=== PATIENT | female | born 1985 | race African-American/Black ===

== ENCOUNTER 2016-04-30 02:42 | Inpatient (IN) | payer OTHER ==
[2016-04-30] MEDS ORDERED: OXYTOCIN 10 UNIT/ML VIAL ONE (03:06)
[2016-04-30] MEDS ORDERED: OXYTOCIN/NORMAL SALINE 20 UNIT/1,000 ML RTUINJ ONE (03:06)
[2016-04-30] MEDS ORDERED: MISOPROSTOL 0.2 MG TABLET ONE (03:06)
[2016-04-30] MEDS ORDERED: LIDOCAINE 1% INJ-PF (10 MG/ML) 30 ML SDV ONE (03:06)
[2016-04-30] MEDS ORDERED: PENICILLIN G-K 5 MILLION UNIT VIAL ONE (03:17)
[2016-04-30 03:24] LABS: ABSOLUTE EOSINOPHILS # (AUTO) 0.1 10^3/uL (0.0-0.6); ABSOLUTE LYMPHOCYTES (AUTO) 2.6 10^3/uL (0.5-4.7); ABSOLUTE MONOCYTES (AUTO) 0.7 10^3/uL (0.1-1.4); ABSOLUTE NEUT (AUTO) 5.7 10^3/uL (1.7-8.2); BASOPHILS % (AUTO) 0.4 % (0-2); EOSINOPHILS % (AUTO) 0.7 % (0-6); HEMATOCRIT 32.3 % (36.0-47.0); HEMOGLOBIN 10.6 g/dL (12.0-15.5); HGB HCT DIFFERENCE -0.5; LYMPHOCYTES % (AUTO) 28.8 % (13-45); MEAN CORPUSCULAR HEMOGLOBIN 28.3 pg (27.0-33.4); MEAN CORPUSCULAR HGB CONC 32.8 g/dL (32.0-36.0); MEAN CORPUSCULAR VOLUME 86 fl (80-97); MONOCYTES % (AUTO) 7.7 % (3-13); RED BLOOD COUNT 3.74 10^6/uL (3.72-5.28); RED CELL DISTRIBUTION WIDTH 17.5 % (11.5-14.0); SEGMENTED NEUTROPHILS % (AUTO) 62.4 % (42-78); WHITE BLOOD COUNT 9.1 10^3/uL (4.0-10.5)
[2016-04-30 03:26] LABS: APPEARANCE,URINE CLEAR; BILIRUBIN,URINE NEGATIVE (NEGATIVE); GLUCOSE, URINE NEGATIVE (NEGATIVE); KETONES,URINE NEGATIVE (NEGATIVE); LEUKOCYTE ESTERASE,URINE MODERATE (NEGATIVE); NITRITE,URINE NEGATIVE (NEGATIVE); PROTEIN,URINE NEGATIVE (NEGATIVE); URINE SPECIFIC GRAVITY 1.003; UROBILINOGEN,URINE NEGATIVE mg/dL (<2.0)
[2016-04-30 03:39] LABS: URINE BARBITURATES SCREEN NEGATIVE; URINE METHADONE SCREEN NEGATIVE; URINE OPIATES LOW NEGATIVE; URINE PHENCYCLIDINE SCREEN NEGATIVE
--- NOTE | 2016-04-30 05:01 | Admission Physical ---
Datetime Report Generated by CPN: 04/30/2016 05:01 CURRENT ADMISSION Hx Assessment: The History has been Reviewed and is Current Chief Complaint: Uterine Contractions Indication for Induction: Not Applicable Admit Plan: Admit to Unit; Initiate Labor Protocol ALLERGIES Medication Allergies: No Medication Allergies: No Known Allergies (04/30/2016) Medication Allergies: N/A Latex: No Latex Allergies Food Allergies: N/A Environmental Allergies: N/A OBSTETRICAL HISTORY EDC: 05/05/2016 00:00 : 2 Para: 1 Gestational Diabetes: No Rh Sensitization: No Incompetent Cervix: No DENI: No Infertility: No ART Treatment: No Uterine Anomaly: No IUGR: No Hx Previous C/S: No Macrosomia: No Hx Loss/Stillborn: No PIH: No Hx : No Placenta Previa/Abruption: No Depression/PP Depression: No PTL/PROM: No Post Hemorrhage: No Current Procedures: Ultrasound Obstetrical History Comments: G1- June 2013, girl, G2-current SEE RECORDS Alcohol: No Marijuana : No Cocaine: No Other Illicit Drugs: No Cigarettes: Never Smoker. [id number] MEDICAL HISTORY Diabetes: No Blood Transfusion: No Pulmonary Disease (Asthma, TB): No Breast Disease: No Hypertension: No Radio Producer Surgery: No Heart Disease: No Hosp/Surgery: No Autoimmune Disorder: No Anesthetic Complications: No Kidney Disease: Yes Abnormal Pap Smear: Yes Neuro/Epilepsy: No Psychiatric Disorders: No Other Medical Diseases: No Hepatitis/Liver Disease: No Significant Family History: No Varicosities/Phlebitis: No Trauma/Violence : No Thyroid Dysfunction: No Medical History Comments: UTI's and abnormal paps INFECTIOUS HISTORY Gonorrhea: No Genital Herpes: No Chlamydia: No Tuberculosis: No Syphilis: No Hepatitis: No HIV/AIDS Exposure: No Rash or Viral Illness: No HPV: No PHYSICAL EXAM General: Normal HEENT: Deferred Neurologic: Deferred Thyroid: Deferred Heart: Normal Lungs: Normal Breast: Deferred Back: Deferred Abdomen: Normal Genitourinary Exam: Normal Extremities: Normal DTRs: Normal Pelvic Type: Adequate Vital Signs: Reviewed; Within Normal Limits VAGINAL EXAM Contraction Comments: q2 MEMBRANES Membranes: Intact FETUS A Admit Comment: Term labor. gbs positive for pcn. Presented completely dilated- precipitous labor, single push delivery after arom PLANS FOR LABOR AND DELIVERY Labor and Delivery: None Pain Management: None Feeding Preference: Breast Benefit of Breast Feed Discussed: Yes Circumcision: N/A INFORMED CONSENT Signature: with User ID: [email or web address]
[2016-04-30] MEDS ORDERED: MEASLES,MUMPS&RUBELLA VACC/PF 0.5 ML VIAL SUBCUT PRN (05:06)
[2016-04-30] MEDS ORDERED: DIBUCAINE 1% OINTMENT 28 GM TP PRN (05:06)
[2016-04-30] MEDS ORDERED: DIPH/PERTUSS(ACELL)/TETANUS VAC/PF 0.5 ML SYR (>=10YO) IM PRN (05:06)
[2016-04-30] MEDS ORDERED: BENZOCAINE/MENTHOL AEROSOL SPRAY 56 ML TOP PRN (05:06)
[2016-04-30] MEDS ORDERED: OXYTOCIN/NORMAL SALINE 1,000 ML IV PRN (05:06)
[2016-04-30] MEDS ORDERED: ZOLPIDEM TARTRATE 5 MG TABLET PO PRN (05:06)
[2016-04-30] MEDS ORDERED: ACETAMINOPHEN WITH CODEINE #3 TABLET PO PRN ×2 (05:06)
--- NOTE | 2016-04-30 05:10 | Delivery Summary ---
Del Sum A-C Datetime Report Generated by CPN: 04/30/2016 05:09 ADMISSION DATA Chief Complaint: Uterine Contractions Indication for Induction: Not Applicable Admission Impression: Term, Intrauterine ; Active Labor Admit Provider Comments: Term labor. gbs positive for pcn. Presented completely dilated- precipitous labor, single push delivery after arom DELIVERY PERSONNEL Delivery Doctor:: Liv Hinds MD Labor and Delivery Nurse:: Estella Chirinos RN Nursery Nurse:: Mickie Bro RN Extension Service Supervisor/ELECTRONIC TECH: Jannet Cheung, ST MATERNAL INFORMATION Delivery Anesthesia: None Medications After Delivery: Pitocin Drip 20 Units/1000ml NSS Estimated Blood Loss (ml): 200 Maternal Complications: Precipitous Labor (<3hrs) Provider Comments: single push after arom clear fluid. tight nuchal unable to reduce so clamped on perineum. live female ap 9/9. spontaneous intact placenta 3vc. no complications LABOR SUMMARY EDC: 05/05/2016 00:00 No. Babies in Womb: 1 Attempted: No Labor Anesthesia: None LABOR INFORMATION Reason for Induction: Not Applicable Onset of Labor: 04/30/2016 01:30 Complete Dilatation: 04/30/2016 03:05 Group B Beta Strep: Positive Antibiotics # of Doses: 1 Antibiotics Time of Last Dose: 0318 Name of Antibiotic Given: Penicillin Steroids Given: None Reason Steroids Not Administered: Not Applicable MEMBRANES Membranes Rupture Method: Artificial Rupture of Membranes: 04/30/2016 03:20 Length of Rupture (hr): 0.07 Amniotic Fluid Color: Clear Amniotic Fluid Amount: Moderate Amniotic Fluid Odor: Normal STAGES OF LABOR Stage 1 hr: 1 Stage 1 min: 35 Stage 2 hr: 0 Stage 2 min: 19 Stage 3 hr: 0 Stage 3 min: 2 Total Time in Labor hr: 1 Total Time in Labor min: 56 VAGINAL DELIVERY Episiotomy: None Laceration Extension: N/A Laceration Type: None Laceration Repair: Not Applicable Sponge Count Correct: N/A CSECTION DELIVERY Primary Indication: N/A Secondary Indication: N/A CSection Incidence: N/A Labor: N/A Elective: N/A CSection Incision: N/A BABY A INFORMATION Delivery Date/Time: 04/30/2016 03:24 Method of Delivery: Vaginal Born in Route : No : N/A Forceps: N/A Vacuum Extraction: N/A Shoulder Dystocia : No PRESENTATION/POSITION BABY A Presentation: Cephalic Cephalic Presentation: Vertex Vertex Position: Left Occipital Anterior Breech Presentation: N/A PLACENTA INFORMATION BABY A Placenta Delivery Time : 04/30/2016 03:26 Placenta Method of Delivery: Spontaneous Placenta Status: Delivered SCORES BABY A Heart Rate 1 min: >100 bpm Resp Effort 1 min: Good Cry Reflex Irritability 1 min: Cough or Sneeze or Pulls Away Muscle Tone 1 min: Active Motion Color 1 min: Body Idalia, Extremities Blue Resuscitation Effort 1 min: Tactile Stimulation SCORE 1 MIN: 9 Heart Rate 5 min: >100 bpm Resp Effort 5 min: Good Cry Reflex Irritability 5 min: Cough or Sneeze or Pulls Away Muscle Tone 5 min: Active Motion Color 5 min: Body Idalia, Extremities Blue Resuscitation Effort 5 min: Tactile Stimulation SCORE 5 MIN: 9 INFANT INFORMATION BABY A Gestational Age at Delivery: 39.2 Gestational Status: Full Term- 39- 40.6 Weeks Outcome : Liveborn Infant Condition : Stable Sex: Female IDENTIFICATION BABY A Verification Date/Time: 04/30/2016 03:38 ID Band Number: [id number] Mother's Name Verified: Yes RN Verifying Infant: S. Lattibeaudeir, RN _ K. Amari, RN WEIGHT/LENGTH BABY A Infant Birthweight (gm): 3732 Weight (lb): 8 Weight (oz): 4 Length (in): 19.00 Length (cm): 48.26 CORD INFORMATION BABY A No. Cord Vessels: 3 Nuchal Cord : Around Neck x1, Tight Cord Blood Taken: Yes-For Eval (Mom's Blood Type - or O+) ASSESSMENT BABY A Complications: None Physical Findings at Delivery: Within Normal Limits Respirations: Appears Normal Skin to Skin: Yes Skin to Skin Time (min): 90 Infant Care By: DOMONIQUE Peña Transferred To: Remains with Mother BABY B INFORMATION : N/A SIGNATURES Signature: with User ID: [email or web address]
[2016-04-30] MEDS: IBUPROFEN 800 MG TABLET PO SCH ×3 (05:32→22:15)
--- NOTE | 2016-04-30 07:01 | L&D Flow Sheet ---
LD Flowsheet Datetime Report Generated by CPN: 04/30/2016 07:00 Datetime: 04/30/2016 04:47 NBP Sys/Kelsy/Mean (mmHg): 130 (QS system process) : 79 (QS system process) : 97 (QS system process) Pulse: 61 (QS system process) Datetime: 04/30/2016 04:31 Vital Signs Stage of : Recovery (Estella ChirinosDOMONIQUE) NBP Sys/Kelsy/Mean (mmHg): 125 (QS system process) : 85 (QS system process) : 101 (QS system process) Pulse: 54 (QS system process) Temperature (F): 98.0 (Estella DOMONIQUE Chirinos) Temperature (C): 36.7 (QS system process) Temperature Route: Axillary (Estella Chirinos DOMONIQUE) Datetime: 04/30/2016 04:17 Vital Signs Stage of : Recovery (Estella Chirinos RN) Datetime: 04/30/2016 04:16 NBP Sys/Kelsy/Mean (mmHg): 118 (QS system process) : 74 (QS system process) : 91 (QS system process) Pulse: 67 (QS system process) Datetime: 04/30/2016 04:01 Vital Signs Stage of : Recovery (Estella Field, RN) NBP Sys/Kelsy/Mean (mmHg): 119 (QS system process) : 69 (QS system process) : 88 (QS system process) Pulse: 67 (QS system process) Datetime: 04/30/2016 03:45 Vital Signs Stage of : Recovery (Estella Chirinos, RN) Datetime: 04/30/2016 03:35 Membranes Ruptured Date/Time: 04/30/2016 03:20 (Estella Chirinos, RN) Amniotic Fluid Odor: Normal (Estellaclarence Chirinos, RN) Datetime: 04/30/2016 03:30 Vital Signs Stage of : Recovery (Estella Field, RN) Datetime: 04/30/2016 03:23 Stage 2 Pushing: Coached on Pushing; Urge to Push (Estella Field, RN) Pushing Position: Pushing with Contractions (Estella Field, RN) Datetime: 04/30/2016 03:20 Uterine Activity Monitor Mode: External; Palpation (Estella Field, RN) Frequency (min): 2.5-3 (Estella Field, RN) Quality: Moderate to Strong (Estella Field, RN) Duration (sec): 70-100 (Estella Field, RN) Resting Tone (Palpate): Relaxed (Estella Field, RN) Assessment A Monitor Mode: External US ([facility], ) FHR Baseline Rate : 130 ([facility]) Variability: Moderate 6-25 bpm ([facility], ) Accelerations: 15X15 ([facility], ) Decelerations: None ([facility], ) Membranes Rupture Method: Artificial ([facility], ) Amniotic Fluid Color: Clear ([facility], ) Amniotic Fluid Amount: Moderate ([facility]) Datetime: 04/30/2016 03:18 Vital Signs Stage of : Labor ([facility], RN) Medications Antibiotics: Penicillin IV (Units) @ [id number] (Estella Field, RN) Patient Care Procedures: Consents Signed; Labs Drawn (Estella Field, RN) Datetime: 04/30/2016 03:05 Frequency (min): q2-3 minutes (Estella Field, RN) Pain Pain Scale: 4 (Estella Chirinos, RN) Pain Presence: Intermittent (Estella Chirinos, RN) Pain Type: Cramping (Estella Chirinos, RN) Pain Location: Abdomen; Back (Estella Chirinos, RN) Pain Goal: 0 (Estella Chirinos, RN) Pain Relief Measures: Comfort Measures (Estella , RN) Pain Coping: Talking Through Contractions; Breathing Through Contractions (Estella , RN) Vaginal Exam Dilatation (cm): 10.0 (Estella , RN) Effacement (%): 100 (Estella , RN) Station: 0 ([facility], RN) Exam by: DOMONIQUE Gomez ([facility], RN) Vaginal Bleeding: None ([facility], ) Maternal Assessment Level of Consciousness: Fully Conscious (Estella , RN) DTR's/Clonus: DTRs 2+; No Clonus (Estella , RN) Headache: Denies (Estella , RN) Breath Sounds, Left: Clear and Equal (Estella Chirinos RN) Breath Sounds, Right: Clear and Equal (Estella Chirinos RN) Nausea/Vomiting: Denies (Estella Chirinos RN) RUQ Epigastric Pain: Denies (Estella Chirinos RN) Teaching Instructional Method: Verbal; Patient Instructed; Family/Support Person Instructed; Verbalized Understanding (Estella Chirinos RN) Plan of Care: Plan of Care Discussed; Vaginal Delivery (Estella Chirinos RN) Unit Routine: [place] to Room; Call Vivar; Bed; Visiting Policy; Waiting Areas; Infant Security; Phone/Cell Phone Use; Photography; Unit Personnel; Consents Signed; Handwashing; Flu/Illness Precautions; Monitoring; IV Pumps; Safety/Fall Risk Prevention; Bathroom Privileges (Estella Chirinos RN) Datetime: 04/30/2016 03:04 NBP Sys/Kelsy/Mean (mmHg): 126 (QS system process) : 63 (QS system process) : 81 (QS system process) Pulse: 100 (QS system process)
[2016-04-30] MEDS: FERROUS SULFATE 325 MG TABLET PO SCH ×2 (09:28→17:43)
[2016-04-30] MEDS: SENNOSIDES/DOCUSATE 8.6-50 MG 1 EACH TABLET PO SCH (09:29)
[2016-04-30] MEDS: DOCUSATE SODIUM 100 MG CAPSULE PO SCH ×2 (09:29→17:43)
[2016-04-30] MEDS: PRENATAL VITAMIN W-O CA NO5/FE FUMARATE/FA CAPSULE PO SCH (09:29)
--- NOTE | 2016-04-30 18:00 | L&D Current Admission ---
Current Admit Datetime Report Generated by CPN: 04/30/2016 18:00 ADMISSION INFORMATION Current Admit Date/Time: 04/30/2016 02:55 (04/30/2016 03:40:Estella Chirinos RN) Reason for Admission: Onset of Labor (04/30/2016 03:40:Estella Chirinos RN) Chief Complaint: Contractions (04/30/2016 03:05:Estella Chirinos RN) EGA per Dates: 39.2 (04/30/2016 03:40:QS system process) Method of Arrival: Wheelchair (04/30/2016 03:40:Estella Chirinos RN) Reason for Induction: Not Applicable (04/30/2016 03:40:Estella Chirinos RN) BELONGINGS/ADVANCED DIRECTIVES Valuables/Personal Effects: Purse/Wallet; Cell Phone (04/30/2016 03:40:Estella Chirinos RN) Disposition of Belongings: Kept with Patient (04/30/2016 03:40:Etsella Chirinos RN) Advance Direct for Healthcare: Yes, Instructed to Bring In (04/30/2016 03:40:Estella Chirinos RN) Durable Power of Sap Portal Developer: Yes (04/30/2016 03:40:Estella Chirinos RN) Living Will: Yes (04/30/2016 03:40:Estella Chirinos RN) Organ Donor: No (04/30/2016 03:40:Estella Chirinos RN) Pt Rights Information Given: Yes (04/30/2016 03:40:Estella Chirinos RN) Pt Understands Pt Rights: Yes (04/30/2016 03:40:Estella Chirinos RN) LEARNING ASSESSMENT Knowledge Level: Understands L_D Process; Understands Care Activities; Had Pre-Hospital Education; Understands Diagnosis (04/30/2016 03:40:Estella Chirinos RN) Barriers to Learning: None (04/30/2016 03:40:Estella Chirinos RN) Learning Readiness: Motivated (04/30/2016 03:40:Estella Chirinos RN) Learns Best By: Reading; Videos (04/30/2016 03:40:Estella Chirinos RN) Learning Needs: Labor and Delivery Process; Pain Management; Symptoms to Report; Treatment Plan (04/30/2016 03:40:Estella Chirinos RN) DOMESTIC VIOLANCE SCREENING Dom Viol Threatened/Hurt: No (04/30/2016 03:40:Estella Chirinos RN) Hx of Abuse/Neglect past 2yrs: No (04/30/2016 03:40:Estella Chirinos RN) Feel Unsafe Going Home: No (04/30/2016 03:40:Estella Chirinos RN) Addt'l Observ Indicating Abuse: No (04/30/2016 03:40:Estella Chirinos RN) Reason Unable to Complete Screen: N/A, Screen Completed (04/30/2016 03:40:Estella Chirinos RN) Considered Personal Harm/Suicide: No (04/30/2016 03:40:Estella Chirinos RN) NUTRITIONAL/FUNCTIONAL SCREENING Problem with Appetite >5 Days: No (04/30/2016 03:40:Estella Chirinos RN) Chew/Swallow Difficulties: No (04/30/2016 03:40:Estella Chirinos RN) Inappropriate Wt Gain/Loss: No (04/30/2016 03:40:Estella Chirinos RN) Presence Skin Breakdown/Ulcer: No (04/30/2016 03:40:Estella Chirinos RN) Special Diet: No (04/30/2016 03:40:Estella Chirinos RN) Pt Requests High Wire Artist Visit: No (04/30/2016 03:40:Estella Chirinos RN) Hx of Any of the Following?: N/A (04/30/2016 03:40:Estella Chirinos RN) New Diagnosis of: N/A (04/30/2016 03:40:Estella Chirinos RN) Requires Assist w/Ambulation: No (04/30/2016 03:40:Estella Chirinos RN) Uses Assist Device to Ambulate: No (04/30/2016 03:40:Estella Chirinos RN) Pt Requires Help w/ADL's: No (04/30/2016 03:40:Estella Chirinos RN)
--- NOTE | 2016-04-30 18:00 | L&D General Admission ---
General Admit Datetime Report Generated by CPN: 04/30/2016 18:00 INFORMATION Patient Age: 31 (03/26/2016 14:32:QS system process) EDC: 05/05/2016 00:00 (04/30/2016 03:35:Estella Chirinos RN) : 2 (04/30/2016 03:35:Estella Chirinos RN) Para: 1 (04/30/2016 03:35:Estella Chirinos RN) Baby, Number in Womb: 1 (04/30/2016 03:35:Charlette Worthy RN) CARE Primary Web Ui Designer: [facility] (04/30/2016 03:35:Estella Chirinos RN) Adequate Care: Yes (04/30/2016 03:35:Estella Chirinos RN) Height (in): 65 (04/30/2016 04:12:QS system process) ALLERGIES Medication Allergy: No (04/30/2016 03:35:Estella Chirinos RN) Medication Allergies: No Known Allergies (04/30/2016) (04/30/2016 04:10:QS system process) Latex Allergy: No Latex Allergies (04/30/2016 03:35:Estella Chirinos RN) Food Allergies: N/A (04/30/2016 03:35:Estella Chirinos RN) Environmental Allergies: N/A (04/30/2016 03:35:Estella Chirinos RN) COMMUNICATION Primary Language: Puerto Rican (04/30/2016 03:35:Estella Chirinos RN) Medical Tx Preferred Language: Puerto Rican (04/30/2016 03:35:Estella Chirinos RN) Communication Barrier(s): None (04/30/2016 03:35:Estella Chirinos RN) DEMOGRAPHICS Address: [address] [place] [address] [place] [address] (03/26/2016 14:32:QS system process) Zipcode: [address] (03/26/2016 14:32:QS system process) Home (03/26/2016 14:32:QS system process) Work (03/26/2016 14:32:QS system process) N: [phone] (03/26/2016 14:32:QS system process) Next of Kin Name: MARIA DEL CARMEN MURILLO (03/26/2016 14:32:QS system process) Next of Kin (03/26/2016 14:32:QS system process) Next of Kin Relationship: MO (03/26/2016 14:32:QS system process) Date of : 1985 (03/26/2016 14:32:QS system process) Marital Status: (03/26/2016 14:32:QS system process) Sex: Female (03/26/2016 14:32:QS system process) Race: (03/26/2016 14:32:QS system process) Ethnicity: Non- or (03/26/2016 14:32:QS system process) Yazidism: None (03/26/2016 14:32:QS system process) FOB Involved: Yes (04/30/2016 03:35:Estella Chirinos RN) Father of Baby Name: Aly Curiel (04/30/2016 03:35:Estella Chirinos RN) DRUG AND ALCOHOL USE Alcohol: No (04/30/2016 03:35:Estella Chirinos RN) Cigarettes: Never Smoker. [id number] (04/30/2016 03:35:Estella Chirinos RN) Marijuana: No (04/30/2016 03:35:Estella Chirinos RN) Cocaine: No (04/30/2016 03:35:Estella Chirinos RN) Other Illicit Drugs: No (04/30/2016 03:35:Estella Chirinos RN) VACCINE HISTORY Influenza Vaccine: Yes (04/30/2016 03:35:Estella Chirinos RN) Pneumococcal Vaccine: No (04/30/2016 03:35:Estella Chirinos RN) Tetanus Vaccine: Yes (04/30/2016 03:35:Estella Chirinos RN) Tdap Vaccine: Yes (04/30/2016 03:35:Estella Chirinos RN) Hepatitis B Vaccine: Yes (04/30/2016 03:35:Estella Chirinos RN) Gas Turbine Mechanic: [facility] (04/30/2016 03:35:Estella Chirinos RN) Feeding Preference: Breast (04/30/2016 03:35:Estella Chirinos RN) Benefit of Breast Feed Discussed: Yes (04/30/2016 03:35:Estella Chirinos RN) Circumcision: N/A (04/30/2016 03:35:Estella Chirinos RN) Classes Attended: No (04/30/2016 03:35:Estella Chirinos RN) Tubal Ligation: No (04/30/2016 03:35:Estella Chirinos RN) Tubal Authorization Signed: N/A (04/30/2016 03:35:Estella Chirinos RN) Consent: N/A (04/30/2016 03:35:Estella Chirinos RN) Consent Signed: N/A (04/30/2016 03:35:Estella Chirinos RN) Pain Management Plans: None (04/30/2016 03:35:Estella Chirinos RN) Plans for Labor and Delivery: None (04/30/2016 03:35:Estella Chirinos RN) Support Person: Aly Curiel (04/30/2016 03:35:Estella Chirinos RN) Support Person Relationship: (04/30/2016 03:35:Estella Chirinos RN) Cultural/Spritual Practice: No (04/30/2016 03:35:Estella Chirinos RN) Spir/Cult Dietary Needs: No (04/30/2016 03:35:Estella Chirinos RN) LIVING SITUATION/DISCHARGE PLAN Living Arrangements: House (04/30/2016 03:35:Estella Chirinos RN) Adequate Access to:: Electric; Heat; Refrigeration; Plumbing/Running water; Phone; Transportation (04/30/2016 03:35:Estella Chirinos RN) WIC Program: No (04/30/2016 03:35:Estella Chirinos RN) Discharge Department Mgr Person: Aly Curiel (04/30/2016 03:35:Estella Chirinos RN) Person to Help after Discharge: Aly Curiel (04/30/2016 03:35:Estella Chirinos RN) Currently Using Commun Resources: No (04/30/2016 03:35:Estella Chirinos RN) Outside Agency/Sprinkler Driver: No (04/30/2016 03:35:Estella Chirinos RN) Car Seat for Discharge: Yes (04/30/2016 03:35:Estella Chirinos RN) Adoption Requested: No (04/30/2016 03:35:Estella Chirinos RN) Pt Contact w/infant Post : N/A (04/30/2016 03:35:Estella Chirinos RN) LABS Blood Type: O Positive (04/30/2016 03:35:Estella Chirinos RN) Antibody Screen: Negative (04/30/2016 03:35:Estella Chirinos RN) Hemoglobin: 10.6 L (04/30/2016 03:14:QS system process) Hematocrit: 32.3 L (04/30/2016 03:14:QS system process) MCV: 86 (04/30/2016 03:14:QS system process) Group Beta Strep: Positive (04/30/2016 03:35:Estella Chirinos RN) Gonorrhea: Negative (04/30/2016 03:35:Estella Chirinos RN) Chlamydia: Negative (04/30/2016 03:35:Estella Chirinos RN) RPR/VDRL: Nonreactive (04/30/2016 03:35:Estella Chirinos RN) Hepatitis B: Negative (04/30/2016 03:35:Estella Chirinos RN) Rubella: Immune (04/30/2016 03:35:Estella Chirinos RN) OB/PREVIOUS HISTORY Previous Procedures: Ultrasound (04/30/2016 03:35:Estella Chirinos RN) Current Procedures: Ultrasound (04/30/2016 03:35:Estella Chirinos RN) History of Previous : No (04/30/2016 03:35:Estella Chirinos RN) History of Gestational Diabetes: No (04/30/2016 03:35:Estella Chirinos RN) History of PIH: No (04/30/2016 03:35:Estella Chirinos RN) History of Incompetent Cervix: No (04/30/2016 03:35:Estella Chirinos RN) History of Placenta Previa/Abrup: No (04/30/2016 03:35:Estella Chirinos RN) History of Macrosomia: No (04/30/2016 03:35:Estella Chirinos RN) History of IUGR: No (04/30/2016 03:35:Estella Chirinos RN) History of Hemorrhage: No (04/30/2016 03:35:Estella Chirinos RN) History of Loss/Stillborn: No (04/30/2016 03:35:Estella Chirinos RN) History of : No (04/30/2016 03:35:Estella Chirinos RN) History of D (Rh) Sensitization: No (04/30/2016 03:35:Estella Chirinos RN) History Recurrent Loss/Stillborn: No (04/30/2016 03:35:Estella Chirinos RN) History Depression/PP Depression: No (04/30/2016 03:35:Estella Chirinos RN) History of Uterine Anomaly/DENI: No (04/30/2016 03:35:Estella Chirinos RN) History of Infertility: No (04/30/2016 03:35:Estella Chirinos RN) History of ART Treatment: No (04/30/2016 03:35:Estella Chirinos RN) History of DENI: No (04/30/2016 03:35:Estella Chirinos RN) Comments Obstetrical History: G1- June 2013, girl, G2-current (04/30/2016 03:35:Estella Chirinos RN) MEDICAL HISTORY Med Hx Diabetes: No (04/30/2016 03:35:Estella Chirinos RN) Med Hx Hypertension: No (04/30/2016 03:35:Estella Chirinos RN) Med Hx Heart Disease: No (04/30/2016 03:35:Estella Chirinos RN) Med Hx Autoimmune Disorder: No (04/30/2016 03:35:Estella Chirinos RN) Med Hx Kidney Disease/UTI: Yes (04/30/2016 03:35:Estella Chirinos RN) Med Hx Neurologic/Epilepsy: No (04/30/2016 03:35:Estella Chirinos RN) Med Hx Psychiatric Disorders: No (04/30/2016 03:35:Estella Chirinos RN) Med Hx Hepatitis/Liver Disease: No (04/30/2016 03:35:Estella Chirinos RN) Med Hx Varicosities/Phlebitis: No (04/30/2016 03:35:Estella Chirinos RN) Med Hx Thyroid Dysfunction: No (04/30/2016 03:35:Estella Chirinos RN) Med Hx Trauma/Violence: No (04/30/2016 03:35:Estella Chirinos RN) Med Hx Blood Transfusion: No (04/30/2016 03:35:Estella Chirinos RN) Med Hx Pulmonary (Asthma,TB): No (04/30/2016 03:35:Estella Chirinos RN) Med Hx Breast: No (04/30/2016 03:35:Estella Chirinos RN) Med Hx BAILER OPERATORS SUPERVISOR Surgery: No (04/30/2016 03:35:Estella Chirinos RN) Med Hx Hospitalization/Surgery: No (04/30/2016 03:35:Estella Chirinos RN) Med Hx Anesthetic Complications: No (04/30/2016 03:35:Estella Chirinos RN) Med Hx Abnormal Pap Smear: Yes (04/30/2016 03:35:Estella Chirinos, RN) Other Medical Diseases: No (04/30/2016 03:35:Estella Chirinos RN) Med Hx Significant Family Hx: No (04/30/2016 03:35:Estella Chirinos RN) Details of Med/Surg Hx: UTI's and abnormal paps (04/30/2016 03:35:Estella Chirinos RN) INFECTIOUS HISTORY Inf Hx Gonorrhea: No (04/30/2016 03:35:Estella Chirinos RN) Inf Hx Chlamydia: No (04/30/2016 03:35:Estella Chirinos RN) Inf Hx Syphilis: No (04/30/2016 03:35:Estella Chirinos RN) Inf Hx HIV/AIDS: No (04/30/2016 03:35:Estella Chirinos RN) Inf Hx Human Papilloma Virus: No (04/30/2016 03:35:Estella Chirinos RN) Inf Hx Pt/Partner Genital Herpes: No (04/30/2016 03:35:Estella Chirinos RN) Inf Hx Tuberculosis/Exposure: No (04/30/2016 03:35:Estella Chirinos RN) Inf Hx Hepatitis B,C: No (04/30/2016 03:35:Estella Chirinos RN) Inf Hx Rash or Viral Illness: No (04/30/2016 03:35:Estella Chirinos RN) GENETIC HISTORY Gen Hx Age >=35 at DILLAN: No (04/30/2016 03:35:Estella Chirinos RN) Gen Hx Thalassemia: No (04/30/2016 03:35:Estella Chirinos RN) Gen Hx Congenital Heart Defect: No (04/30/2016 03:35:Estella Chirinos RN) Gen Hx Neural Tube Defect: No (04/30/2016 03:35:Estella Chirinos RN) Gen Hx Down's Syndrome: No (04/30/2016 03:35:Estella Chirinos RN) Gen Hx Km-Sachs: No (04/30/2016 03:35:Estella Chirinos RN) Gen Hx Marley: No (04/30/2016 03:35:Estella Chirinos RN) Gen Hx Familial Dysautonomia: No (04/30/2016 03:35:Estella Chirinos RN) Gen Hx Sickle Cell Disease/Trait: No (04/30/2016 03:35:Estella Chirinos RN) Gen Hx Hemophilia/Blood Disorder: No (04/30/2016 03:35:Estella Chirinos RN) Gen Hx Muscular Dystrophy: No (04/30/2016 03:35:Estella Chirinos RN) Gen Hx Cystic Fibrosis: No (04/30/2016 03:35:Estella Chirinos RN) Gen Hx [place] Chorea: No (04/30/2016 03:35:Estella Chirinos RN) Gen Hx Mental Retardation/Autism: No (04/30/2016 03:35:Estella Chirinos RN) Gen Hx Tested for Fragile X: No (04/30/2016 03:35:Estella Chirinos RN) Gen Hx Other Inher/Chromosomal: No (04/30/2016 03:35:Estella Chirinos RN) Gen Hx Maternal Metabolic DO: No (04/30/2016 03:35:Estella Chirinos RN) Gen Hx Pt Father or FOB Defect: No (04/30/2016 03:35:Estella Chirinos RN) Gen Hx Other Genetic History: No (04/30/2016 03:35:Estella Chirinos RN) Gen Hx Drugs/Meds since LMP: No (04/30/2016 03:35:Estella Chirinos RN)
[2016-05-01] MEDS: IBUPROFEN 800 MG TABLET PO SCH ×3 (05:47→21:49)
--- NOTE | 2016-05-01 06:01 | L&D Current Admission ---
Current Admit Datetime Report Generated by CPN: 05/01/2016 06:00 ADMISSION INFORMATION Current Admit Date/Time: 04/30/2016 02:55 (04/30/2016 03:40:Estella Chirinos RN) Reason for Admission: Onset of Labor (04/30/2016 03:40:Estella Chirinos RN) Chief Complaint: Contractions (04/30/2016 03:05:Estella Chirinos RN) EGA per Dates: 39.2 (04/30/2016 03:40:QS system process) Method of Arrival: Wheelchair (04/30/2016 03:40:Estella Chirinos RN) Reason for Induction: Not Applicable (04/30/2016 03:40:Estella Chirinos RN) BELONGINGS/ADVANCED DIRECTIVES Valuables/Personal Effects: Purse/Wallet; Cell Phone (04/30/2016 03:40:Estella Chirinos RN) Disposition of Belongings: Kept with Patient (04/30/2016 03:40:Estella Chirinos RN) Advance Direct for Healthcare: Yes, Instructed to Bring In (04/30/2016 03:40:Estella Chirinos RN) Durable Power of Physical Science Technician: Yes (04/30/2016 03:40:Estella Chirinos RN) Living Will: Yes (04/30/2016 03:40:Estella Chirinos RN) Organ Donor: No (04/30/2016 03:40:Estella Chirinos RN) Pt Rights Information Given: Yes (04/30/2016 03:40:Estella Chirinos RN) Pt Understands Pt Rights: Yes (04/30/2016 03:40:Estella Chirinos RN) LEARNING ASSESSMENT Knowledge Level: Understands L_D Process; Understands Care Activities; Had Pre-Hospital Education; Understands Diagnosis (04/30/2016 03:40:Estella Chirinos RN) Barriers to Learning: None (04/30/2016 03:40:Estella Chirinos RN) Learning Readiness: Motivated (04/30/2016 03:40:Estella Chirinos RN) Learns Best By: Reading; Videos (04/30/2016 03:40:Estella Chirinos RN) Learning Needs: Labor and Delivery Process; Pain Management; Symptoms to Report; Treatment Plan (04/30/2016 03:40:Estella Chirinos RN) DOMESTIC VIOLANCE SCREENING Dom Viol Threatened/Hurt: No (04/30/2016 03:40:Estella Chirinos RN) Hx of Abuse/Neglect past 2yrs: No (04/30/2016 03:40:Estella Chirinos RN) Feel Unsafe Going Home: No (04/30/2016 03:40:Estella Chirinos RN) Addt'l Observ Indicating Abuse: No (04/30/2016 03:40:Estella Chirinos RN) Reason Unable to Complete Screen: N/A, Screen Completed (04/30/2016 03:40:Estella Chirinos RN) Considered Personal Harm/Suicide: No (04/30/2016 03:40:Estella Chirinos RN) NUTRITIONAL/FUNCTIONAL SCREENING Problem with Appetite >5 Days: No (04/30/2016 03:40:Estella Chirinos RN) Chew/Swallow Difficulties: No (04/30/2016 03:40:Estella Chirinos RN) Inappropriate Wt Gain/Loss: No (04/30/2016 03:40:Estella Chirinos RN) Presence Skin Breakdown/Ulcer: No (04/30/2016 03:40:Estella Chirnios RN) Special Diet: No (04/30/2016 03:40:Estella Chirinos RN) Pt Requests Salesperson Sheet Music Visit: No (04/30/2016 03:40:Estella Chirinos RN) Hx of Any of the Following?: N/A (04/30/2016 03:40:Estella Chirinos RN) New Diagnosis of: N/A (04/30/2016 03:40:Estella Chirinos RN) Requires Assist w/Ambulation: No (04/30/2016 03:40:Estella Chirinos RN) Uses Assist Device to Ambulate: No (04/30/2016 03:40:Estella Chirinos RN) Pt Requires Help w/ADL's: No (04/30/2016 03:40:Estella Chirinos RN)
--- NOTE | 2016-05-01 06:01 | L&D General Admission ---
General Admit Datetime Report Generated by CPN: 05/01/2016 06:00 INFORMATION Patient Age: 31 (03/26/2016 14:32:QS system process) EDC: 05/05/2016 00:00 (04/30/2016 03:35:Estella Chirinos RN) : 2 (04/30/2016 03:35:Estella Chirinos RN) Para: 1 (04/30/2016 03:35:Estella Chirinos RN) Baby, Number in Womb: 1 (04/30/2016 03:35:Charlette Worthy RN) CARE Primary Header Machine Operator: [facility] (04/30/2016 03:35:Estella Chirinos RN) Adequate Care: Yes (04/30/2016 03:35:Estella Chirinos RN) Height (in): 65 (04/30/2016 04:12:QS system process) ALLERGIES Medication Allergy: No (04/30/2016 03:35:Estella Chirinos RN) Medication Allergies: No Known Allergies (04/30/2016) (04/30/2016 04:10:QS system process) Latex Allergy: No Latex Allergies (04/30/2016 03:35:Estella Chirinos RN) Food Allergies: N/A (04/30/2016 03:35:Estella Chirinos RN) Environmental Allergies: N/A (04/30/2016 03:35:Estella Chirinos RN) COMMUNICATION Primary Language: Lao (04/30/2016 03:35:Estella Chirinos RN) Medical Tx Preferred Language: Lao (04/30/2016 03:35:Estella Chirinos RN) Communication Barrier(s): None (04/30/2016 03:35:Estella Chirinos RN) DEMOGRAPHICS Address: [address] [place] [address] [place] [address] (03/26/2016 14:32:QS system process) Zipcode: [address] (03/26/2016 14:32:QS system process) Home (03/26/2016 14:32:QS system process) Work (03/26/2016 14:32:QS system process) N: [id number] (03/26/2016 14:32:QS system process) Next of Kin Name: MARIA DEL CARMEN MURILLO (03/26/2016 14:32:QS system process) Next of Kin (03/26/2016 14:32:QS system process) Next of Kin Relationship: MO (03/26/2016 14:32:QS system process) Date of : 1985 (03/26/2016 14:32:QS system process) Marital Status: (03/26/2016 14:32:QS system process) Sex: Female (03/26/2016 14:32:QS system process) Race: (03/26/2016 14:32:QS system process) Ethnicity: Non- or (03/26/2016 14:32:QS system process) Moravian: None (03/26/2016 14:32:QS system process) FOB Involved: Yes (04/30/2016 03:35:Estella Chirinos RN) Father of Baby Name: Aly Curiel (04/30/2016 03:35:Estella Chirinos RN) DRUG AND ALCOHOL USE Alcohol: No (04/30/2016 03:35:Estella Chirinos RN) Cigarettes: Never Smoker. [id number] (04/30/2016 03:35:Estella Chirinos RN) Marijuana: No (04/30/2016 03:35:Estella Chirinos RN) Cocaine: No (04/30/2016 03:35:Estella Chirinos RN) Other Illicit Drugs: No (04/30/2016 03:35:Estella Chirinos RN) VACCINE HISTORY Influenza Vaccine: Yes (04/30/2016 03:35:Estella Chirinos RN) Pneumococcal Vaccine: No (04/30/2016 03:35:Estella Chirinos RN) Tetanus Vaccine: Yes (04/30/2016 03:35:Estella Chirinos RN) Tdap Vaccine: Yes (04/30/2016 03:35:Estella Chirinos RN) Hepatitis B Vaccine: Yes (04/30/2016 03:35:Estella Chirinos RN) Sign Maintenance: [facility] (04/30/2016 03:35:Estella Chirinos RN) Feeding Preference: Breast (04/30/2016 03:35:Estella Chirinos RN) Benefit of Breast Feed Discussed: Yes (04/30/2016 03:35:Estella Chirinos RN) Circumcision: N/A (04/30/2016 03:35:Estella Chirinos RN) Classes Attended: No (04/30/2016 03:35:Estella Chirinos RN) Tubal Ligation: No (04/30/2016 03:35:Estella Chirinos RN) Tubal Authorization Signed: N/A (04/30/2016 03:35:Estella Chirinos RN) Consent: N/A (04/30/2016 03:35:Estella Chirinos RN) Consent Signed: N/A (04/30/2016 03:35:Estella Chirinos RN) Pain Management Plans: None (04/30/2016 03:35:Estella Chirinos RN) Plans for Labor and Delivery: None (04/30/2016 03:35:Estella Chirinos RN) Support Person: Aly Curiel (04/30/2016 03:35:Estella Chirinos RN) Support Person Relationship: (04/30/2016 03:35:Estella Chirinos RN) Cultural/Spritual Practice: No (04/30/2016 03:35:Estella Chirinos RN) Spir/Cult Dietary Needs: No (04/30/2016 03:35:Estella Chirinos RN) LIVING SITUATION/DISCHARGE PLAN Living Arrangements: House (04/30/2016 03:35:Estella Chirinos RN) Adequate Access to:: Electric; Heat; Refrigeration; Plumbing/Running water; Phone; Transportation (04/30/2016 03:35:Estella Chirinos RN) WIC Program: No (04/30/2016 03:35:Estella Chirinos RN) Discharge Applications Support Lead Person: Aly Curiel (04/30/2016 03:35:Estella Chirinos RN) Person to Help after Discharge: Aly Curiel (04/30/2016 03:35:Estella Chirinos RN) Currently Using Commun Resources: No (04/30/2016 03:35:Estella Chirinos RN) Outside Agency/Teacher Instrumental: No (04/30/2016 03:35:Estella Chirinos RN) Car Seat for Discharge: Yes (04/30/2016 03:35:Estella Chirinos RN) Adoption Requested: No (04/30/2016 03:35:Estella Chirinos RN) Pt Contact w/infant Post : N/A (04/30/2016 03:35:Estella Chirinos RN) LABS Blood Type: O Positive (04/30/2016 03:35:Estella Chirinos RN) Antibody Screen: Negative (04/30/2016 03:35:Estella Chirinos RN) Hemoglobin: 10.6 L (04/30/2016 03:14:QS system process) Hematocrit: 32.3 L (04/30/2016 03:14:QS system process) MCV: 86 (04/30/2016 03:14:QS system process) Group Beta Strep: Positive (04/30/2016 03:35:Estella Chirinos RN) Gonorrhea: Negative (04/30/2016 03:35:Estella Chirinos RN) Chlamydia: Negative (04/30/2016 03:35:Estella Chirinos RN) RPR/VDRL: Nonreactive (04/30/2016 03:35:Estella Chirinos RN) Hepatitis B: Negative (04/30/2016 03:35:Estella Chirinos RN) Rubella: Immune (04/30/2016 03:35:Estella Chirinos RN) OB/PREVIOUS HISTORY Previous Procedures: Ultrasound (04/30/2016 03:35:Estella Chirinos RN) Current Procedures: Ultrasound (04/30/2016 03:35:Estella Chirinos RN) History of Previous : No (04/30/2016 03:35:Estella Chirinos RN) History of Gestational Diabetes: No (04/30/2016 03:35:Estella Chirinos RN) History of PIH: No (04/30/2016 03:35:Estella Chirinos RN) History of Incompetent Cervix: No (04/30/2016 03:35:Estella Chirinos RN) History of Placenta Previa/Abrup: No (04/30/2016 03:35:Estella Chirinos RN) History of Macrosomia: No (04/30/2016 03:35:Estella Chirinos RN) History of IUGR: No (04/30/2016 03:35:Estella Chirinos RN) History of Hemorrhage: No (04/30/2016 03:35:Estella Chirinos RN) History of Loss/Stillborn: No (04/30/2016 03:35:Estella Chirinos RN) History of : No (04/30/2016 03:35:Estella Chirinos RN) History of D (Rh) Sensitization: No (04/30/2016 03:35:Estella Chirinos RN) History Recurrent Loss/Stillborn: No (04/30/2016 03:35:Estella Chirinos RN) History Depression/PP Depression: No (04/30/2016 03:35:Estella Chirinos RN) History of Uterine Anomaly/DENI: No (04/30/2016 03:35:Estella Chirinos RN) History of Infertility: No (04/30/2016 03:35:Estella Chirinos RN) History of ART Treatment: No (04/30/2016 03:35:Estella Chirinos RN) History of DENI: No (04/30/2016 03:35:Estella Chirinos RN) Comments Obstetrical History: G1- June 2013, girl, G2-current (04/30/2016 03:35:Estella Chirinos RN) MEDICAL HISTORY Med Hx Diabetes: No (04/30/2016 03:35:Estella Chirinos RN) Med Hx Hypertension: No (04/30/2016 03:35:Estella Chirinos RN) Med Hx Heart Disease: No (04/30/2016 03:35:Estella Chirinos RN) Med Hx Autoimmune Disorder: No (04/30/2016 03:35:Estella Chirinos RN) Med Hx Kidney Disease/UTI: Yes (04/30/2016 03:35:Estella Chirinos RN) Med Hx Neurologic/Epilepsy: No (04/30/2016 03:35:Estella Chirinos RN) Med Hx Psychiatric Disorders: No (04/30/2016 03:35:Estella Chirinos RN) Med Hx Hepatitis/Liver Disease: No (04/30/2016 03:35:Estella Chirinos RN) Med Hx Varicosities/Phlebitis: No (04/30/2016 03:35:Estella Chirinos RN) Med Hx Thyroid Dysfunction: No (04/30/2016 03:35:Estella Chirinos RN) Med Hx Trauma/Violence: No (04/30/2016 03:35:Estella Chirinos RN) Med Hx Blood Transfusion: No (04/30/2016 03:35:Estella Chirinos RN) Med Hx Pulmonary (Asthma,TB): No (04/30/2016 03:35:Estella Chirinos RN) Med Hx Breast: No (04/30/2016 03:35:Estella Chirinos RN) Med Hx BOBBIN DISKER Surgery: No (04/30/2016 03:35:Estella Chirinos RN) Med Hx Hospitalization/Surgery: No (04/30/2016 03:35:Estella Chirinos RN) Med Hx Anesthetic Complications: No (04/30/2016 03:35:Estella Chirinos RN) Med Hx Abnormal Pap Smear: Yes (04/30/2016 03:35:Estella Chirinos, RN) Other Medical Diseases: No (04/30/2016 03:35:Estella Chirinos RN) Med Hx Significant Family Hx: No (04/30/2016 03:35:Estella Chirinos RN) Details of Med/Surg Hx: UTI's and abnormal paps (04/30/2016 03:35:Estella Chirinos RN) INFECTIOUS HISTORY Inf Hx Gonorrhea: No (04/30/2016 03:35:Estella Chirinos RN) Inf Hx Chlamydia: No (04/30/2016 03:35:Estella Chirinos RN) Inf Hx Syphilis: No (04/30/2016 03:35:Estella Chirinos RN) Inf Hx HIV/AIDS: No (04/30/2016 03:35:Estella Chirinos RN) Inf Hx Human Papilloma Virus: No (04/30/2016 03:35:Estella Chirinos RN) Inf Hx Pt/Partner Genital Herpes: No (04/30/2016 03:35:Estella Chirinos RN) Inf Hx Tuberculosis/Exposure: No (04/30/2016 03:35:Estella Chirinos RN) Inf Hx Hepatitis B,C: No (04/30/2016 03:35:Estella Chirinos RN) Inf Hx Rash or Viral Illness: No (04/30/2016 03:35:Estella Chirinos RN) GENETIC HISTORY Gen Hx Age >=35 at DILLAN: No (04/30/2016 03:35:Estella Chirinos RN) Gen Hx Thalassemia: No (04/30/2016 03:35:Estella Chirinos RN) Gen Hx Congenital Heart Defect: No (04/30/2016 03:35:Estella Chirinos RN) Gen Hx Neural Tube Defect: No (04/30/2016 03:35:Estella Chirinos RN) Gen Hx Down's Syndrome: No (04/30/2016 03:35:Estella Chirinos RN) Gen Hx Km-Sachs: No (04/30/2016 03:35:Estella Chirinos RN) Gen Hx Marley: No (04/30/2016 03:35:Estella Chirinos RN) Gen Hx Familial Dysautonomia: No (04/30/2016 03:35:Estella Chirinos RN) Gen Hx Sickle Cell Disease/Trait: No (04/30/2016 03:35:Estella Chirinos RN) Gen Hx Hemophilia/Blood Disorder: No (04/30/2016 03:35:Estella Chirinos RN) Gen Hx Muscular Dystrophy: No (04/30/2016 03:35:Estella Chirinos RN) Gen Hx Cystic Fibrosis: No (04/30/2016 03:35:Estella Chirinos RN) Gen Hx [place] Chorea: No (04/30/2016 03:35:Estella Chirinos RN) Gen Hx Mental Retardation/Autism: No (04/30/2016 03:35:Estella Chirinos RN) Gen Hx Tested for Fragile X: No (04/30/2016 03:35:Estella Chirinos RN) Gen Hx Other Inher/Chromosomal: No (04/30/2016 03:35:Estella Chirinos RN) Gen Hx Maternal Metabolic DO: No (04/30/2016 03:35:Estella Chirinos RN) Gen Hx Pt Father or FOB Defect: No (04/30/2016 03:35:Estella Chirinos RN) Gen Hx Other Genetic History: No (04/30/2016 03:35:Estella Chirinos RN) Gen Hx Drugs/Meds since LMP: No (04/30/2016 03:35:Estella Chirinos RN)
[2016-05-01 07:43] LABS: HEMATOCRIT 30.1 % (36.0-47.0); HEMOGLOBIN 10.1 g/dL (12.0-15.5); HGB HCT DIFFERENCE 0.2; MEAN CORPUSCULAR HEMOGLOBIN 28.8 pg (27.0-33.4); MEAN CORPUSCULAR HGB CONC 33.4 g/dL (32.0-36.0); MEAN CORPUSCULAR VOLUME 86 fl (80-97); RED BLOOD COUNT 3.49 10^6/uL (3.72-5.28); RED CELL DISTRIBUTION WIDTH 18.1 % (11.5-14.0); WHITE BLOOD COUNT 7.9 10^3/uL (4.0-10.5)
[2016-05-01] MEDS: FERROUS SULFATE 325 MG TABLET PO SCH ×2 (08:23→17:36)
--- NOTE | 2016-05-01 09:35 | PDOC PROGRESS REPORT ---
Subjective-OB Subjective: Post Delivery Day: 1 31 year old. Denies any needs at this time, states lochia is stable, pain is well controlled, voiding without difficulty. Physical Exam (OB) Vital Signs: Temp Pulse Resp BP Pulse Ox 97.7 F 79 16 118/76 98 05/01/16 09:31 05/01/16 09:31 05/01/16 09:31 05/01/16 08:32 05/01/16 09:31 Intake & Output 04/30/16 05/01/16 05/02/16 06:59 06:59 06:59 Weight 81.35 kg - Lochia Lochia Amount: Small 10-25 ml Lochia Color: Rubra/Red - Abdomen Description: Soft, Round Hernia Present: No Fundal Description: Firm, Midline Fundal Height: u/u - u/2 Objective-Diagnostic Laboratory: 05/01/16 07:31 05/01/16 07:31 WBC 7.9 RBC 3.49 L Hgb 10.1 L Hct 30.1 L MCV 86 MCH 28.8 MCHC 33.4 RDW 18.1 H Plt Count 174 Assessment and Plan(PN) - Assessment and Plan (1) Vaginal delivery Is this a current diagnosis for this admission?: YesPlan: routine pp care (2) Acute blood loss anemia Is this a current diagnosis for this admission?: YesPlan: ferrous sulfate increase dietary iron - Time Spent with Patient Time with patient: Less than 15 minutes Critical Time spent with patient: Less than 15 minutes Medications reviewed and adjusted accordingly: Yes - Disposition Anticipated Discharge: Home Within: within 24 hours
[2016-05-01] MEDS: SENNOSIDES/DOCUSATE 8.6-50 MG 1 EACH TABLET PO SCH (10:12)
[2016-05-01] MEDS: DOCUSATE SODIUM 100 MG CAPSULE PO SCH ×2 (10:13→17:36)
[2016-05-01] MEDS: PRENATAL VITAMIN W-O CA NO5/FE FUMARATE/FA CAPSULE PO SCH (10:13)
[2016-05-02] MEDS: IBUPROFEN 800 MG TABLET PO SCH ×2 (06:23→13:07)
[2016-05-02 08:09] VITALS: BP 127/72
--- NOTE | 2016-05-02 08:58 | PDOC PROGRESS REPORT ---
Subjective-OB Subjective: Post Delivery Day: 31 year old. Denies any needs at this time Doing well, ready to go home, family at BS, breast feeding, scant bleeding, voiding Physical Exam (OB) Vital Signs: Temp Pulse Resp BP Pulse Ox 98.0 F 69 18 127/72 H 100 05/02/16 07:58 05/02/16 07:58 05/02/16 07:58 05/02/16 07:58 05/02/16 07:58 Intake & Output 05/01/16 05/02/16 05/03/16 06:59 06:59 06:59 Intake Total 1200 Balance 1200 - Lochia Lochia Amount: Small 10-25 ml Lochia Color: Rubra/Red - Abdomen Description: Tender, Soft Hernia Present: No Fundal Description: Firm, Midline Fundal Height: u/u - u/2 Objective-Diagnostic Laboratory: 05/01/16 07:31 Assessment and Plan(PN) - Assessment and Plan (1) Vaginal delivery Is this a current diagnosis for this admission?: Yes (2) Acute blood loss anemia Is this a current diagnosis for this admission?: Yes - Time Spent with Patient Medications reviewed and adjusted accordingly: Yes - Disposition Anticipated Discharge: Home Within: Other - home today, no smoking around baby, RTC 4 weeks
--- NOTE | 2016-05-02 09:03 | PDOC DISCHARGE SUMMARY ---
Final Diagnosis Discharge Date: 05/02/16 - Final Diagnosis (1) Vaginal delivery Is this a current diagnosis for this admission?: Yes (2) Acute blood loss anemia Is this a current diagnosis for this admission?: Yes Discharge Data - Discharge Medication Home Medications: Pnv No.122/Iron/Folic Acid [ Multi Tablet] 1 each PO DAILY 04/30/16 Gestational Age: 39.2 Reason(s) for Admission: Onset of Labor, Group B Strep Positive Procedures: Ultrasound Intrapartum Procedure(s): Spontaneous Vaginal Delivery - [place] Data Baby 1 Female at 1 minute: 9 at 5 minutes: 9 Weight: 3.742 kg Home with Mother: Yes Complications: No - Diagnosis Test Laboratory: Temp Pulse Resp BP Pulse Ox 98.0 F 69 18 127/72 H 100 05/02/16 08:58 05/02/16 08:58 05/02/16 08:58 05/02/16 07:58 05/02/16 08:58 04/30/16 04/30/16 05/01/16 02:54 03:14 07:31 RBC 3.74 3.49 L Hgb 10.6 L 10.1 L Hct 32.3 L 30.1 L Urine Opiates Screen NEGATIVE - Discharge information/Instructions Discharge Activity: Activity As Tolerated, No Lifting Over 10 Pounds, Pelvic Rest, No tub bath Discharge Diet: As Tolerated, Regular Disposition: HOME, SELF-CARE Follow up with: [facility] in: 4, Weeks
[2016-05-02] MEDS: SENNOSIDES/DOCUSATE 8.6-50 MG 1 EACH TABLET PO SCH (10:08)
[2016-05-02] MEDS: FERROUS SULFATE 325 MG TABLET PO SCH (10:08)
[2016-05-02] MEDS: PRENATAL VITAMIN W-O CA NO5/FE FUMARATE/FA CAPSULE PO SCH (10:09)
[2016-05-02] MEDS: DOCUSATE SODIUM 100 MG CAPSULE PO SCH (10:09)
== END 2016-05-02 14:14 | disposition home or self-care (01) | DRG 775 ==
LOC: LC 02:42 → LR 03:08 → 2S 05:00
PROVIDERS: ADMIT Obstetrics & Gynecology; ATTEND Obstetrics & Gynecology
PROC: 10E0XZZ Delivery of Products of Conception, External Approach (ICD-10-PCS; principal; 2016-04-30)
PROC: 4A1HXCZ Monitoring of Products of Conception, Cardiac Rate, External Approach (ICD-10-PCS; 2016-04-30)
PROC: 10907ZC Drainage of Amniotic Fluid, Therapeutic from Products of Conception, Via Natural or Artificial Opening (ICD-10-PCS; 2016-04-30)
DX: O62.3 Precipitate labor (principal); D62 Acute posthemorrhagic anemia; O99.02 Anemia complicating childbirth; O69.1XX0 Labor and delivery complicated by cord around neck, with compression, not applicable or unspecified; O99.824 Streptococcus B carrier state complicating childbirth; Z3A.39 39 weeks gestation of pregnancy; Z37.0 Single live birth
CPT/HCPCS: 36415; 80307; 81005; 85025; 85027; 86592; 86850; 86900; 86901; J2540; J2590; J3490

== ENCOUNTER 2017-02-09 22:42 | Observation (INO) | payer OTHER ==
[2017-02-09 23:11] LABS: APPEARANCE,URINE SLIGHTLY-CLOUDY; BILIRUBIN,URINE NEGATIVE (NEGATIVE); COLOR,URINE YELLOW; GLUCOSE, URINE NEGATIVE (NEGATIVE); KETONES,URINE NEGATIVE (NEGATIVE); LEUKOCYTE ESTERASE,URINE SMALL (NEGATIVE); NITRITE,URINE NEGATIVE (NEGATIVE); PROTEIN,URINE NEGATIVE (NEGATIVE); UROBILINOGEN,URINE NEGATIVE mg/dL (<2.0)
[2017-02-09 23:23] LABS: URINE AMPHETAMINES SCREEN NEGATIVE; URINE BARBITURATES SCREEN NEGATIVE; URINE BENZODIAZEPINES SCREEN NEGATIVE; URINE COCAINE SCREEN NEGATIVE; URINE MARIJUANA (THC) SCREEN NEGATIVE; URINE METHADONE SCREEN NEGATIVE; URINE PHENCYCLIDINE SCREEN NEGATIVE
--- NOTE | 2017-02-10 00:24 | RADIOLOGY REPORT (SQ) ---
EXAM DESCRIPTION: U/S OB LIMITED CLINICAL HISTORY: 31 years Female, bleeding. LMP of 08/12/2016 Estimated delivery date of 05/19/2017. COMPARISON: None. TECHNIQUE: Limited second trimester obstetrical ultrasound to evaluate for viability. Transvaginal and transabdominal images obtained. FINDINGS: Within the uterus there is a single intrauterine in breech presentation. heart rate of 140 bpm. The placenta is anterior with total previa. No measurements were obtained to provide gestational age. Amniotic fluid index of 14.3. The cervix at a minimum measures 4.4 cm. The largest cervical measurement provided is 5.0 cm. No evidence of funneling or free fluid. IMPRESSION: 1. Single live intrauterine with heart rate of 140 bpm in breech presentation. 2. Normal amniotic fluid index.
[2017-02-10 00:26] LABS: ABSOLUTE EOSINOPHILS # (AUTO) 0.2 10^3/uL (0.0-0.6); ABSOLUTE MONOCYTES (AUTO) 0.7 10^3/uL (0.1-1.4); ABSOLUTE NEUT (AUTO) 6.3 10^3/uL (1.7-8.2); BASOPHILS % (AUTO) 0.3 % (0-2); EOSINOPHILS % (AUTO) 1.7 % (0-6); HEMATOCRIT 35.4 % (36.0-47.0); HEMOGLOBIN 11.9 g/dL (12.0-15.5); LYMPHOCYTES % (AUTO) 22.3 % (13-45); MEAN CORPUSCULAR HEMOGLOBIN 30.6 pg (27.0-33.4); MEAN CORPUSCULAR HGB CONC 33.6 g/dL (32.0-36.0); MEAN CORPUSCULAR VOLUME 91 fl (80-97); MONOCYTES % (AUTO) 7.4 % (3-13); PLATELET COUNT 217 10^3/uL (150-450); RED BLOOD COUNT 3.89 10^6/uL (3.72-5.28); RED CELL DISTRIBUTION WIDTH 14.5 % (11.5-14.0); SEGMENTED NEUTROPHILS % (AUTO) 68.3 % (42-78); TOTAL CELLS COUNTED % (AUTO) 100 %; WHITE BLOOD COUNT 9.2 10^3/uL (4.0-10.5)
[2017-02-10] MEDS ORDERED: BETAMET ACET/BETAMET NA INJ 6 MG/1 ML IM PRN (00:51)
[2017-02-10] MEDS ORDERED: RINGERS SOLUTION,LACTATED 1,000 ML IV PRN (00:52)
[2017-02-10] MEDS ORDERED: BETAMET ACET/BETAMET NA INJ 6 MG/1 ML ONE (00:55)
[2017-02-10] MEDS ORDERED: ZOLPIDEM TARTRATE 5 MG TABLET PO ONE (02:31)
[2017-02-10] MEDS ORDERED: ZOLPIDEM TARTRATE 5 MG TABLET ONE (02:33)
--- NOTE | 2017-02-10 10:54 | L&D Progress Notes ---
PROGRESS NOTES Datetime Report Generated by CPN: 02/10/2017 10:53 PROGRESS NOTE Impression Other: another episode of bleeding Procedures- Other: pad count Plan: Continue Present Management Informed Consent Obtained: Risks, Benefits and Alternatives Discussed Comment: Pt admitted last night for vaginal bleeding and noted to have placenta previa. Pt continuing to have low level bleeding. Reviewed plan of care. No ctx and bleeding is dark brown. REviewed previa and precautions needed and plan for including possible c/s if placenta stays complete previa or low lying. Pt verbalized understanding. MEMBRANES Membranes: Intact FETUS A Monitoring: External US : 22wks 4 days SIGNATURE SIGNATURE: [id number] Signature: with User ID: [email or web address]
[2017-02-10] MEDS ORDERED: ZOLPIDEM TARTRATE 5 MG TABLET PO SCH (12:00)
[2017-02-11 08:22] VITALS: BP 102/62
[2017-02-11] MEDS ORDERED: BETAMET ACET/BETAMET NA INJ 6 MG/1 ML IM ONE (09:49)
--- NOTE | 2017-02-11 09:55 | PDOC PROGRESS REPORT ---
Subjective Progress Note for:: 02/11/17 Subjective:: pt denies any further bleeding or spotting no other complaints voiced Reason For Visit: IUP AT 21WKE WITH COMPLETE PLACENTA Physical Exam - Physical Exam Vital Signs: Temp Pulse Resp BP Pulse Ox 98.4 F 84 15 102/62 100 02/11/17 07:29 02/11/17 07:29 02/11/17 07:29 02/11/17 07:29 02/11/17 07:29 Intake & Output 02/10/17 02/11/17 02/12/17 06:59 06:59 06:59 Weight 84.55 kg General appearance: PRESENT: no acute distress GI/Abdominal exam: PRESENT: normal bowel sounds, soft Result Laboratory Results: 02/09/17 23:45 Impressions: Obstetrics Ultrasound 02/09/17 00:00 IMPRESSION: 1. Single live intrauterine with heart rate of 140 bpm in breech presentation. 2. Normal amniotic fluid index. Assessment & Plan - Plan Summary Plan Summary: pt is discharged on pelvic rest and activity restrictions. She is to be seen in [facility] and will call them tomorrow for appointment. return to hospital if she has any more bleeding.
--- NOTE | 2017-02-11 09:58 | PDOC DISCHARGE SUMMARY ---
General - Admit/Disc Date/PCP Admission Date/Primary Care Provider: 02/10/17 12:26 NAEEM KUNZ MD Discharge Date: 02/11/17 - Additional Information Discharge Diet: As Tolerated Discharge Activity: No Lifting Over 10 Pounds, No Lifting/Push/Pulling, Other Home Medications: No122/Iron/Folic Acid [ Multi Tablet] 1 each PO DAILY 04/30/16 Levothyroxine Sodium [Synthroid 0.088 mg Tablet] 0.088 mg PO DAILY 02/10/17 Ranitidine HCl [Zantac 150 mg Tablet] 150 mg PO DAILY 02/10/17 History of Present Illness History of Present Illness: NIA MURILLO is a 31 year old female Physical Exam - Physical Exam Vital Signs: Temp Pulse Resp BP Pulse Ox 98.4 F 84 15 102/62 100 02/11/17 07:29 02/11/17 07:29 02/11/17 07:29 02/11/17 07:29 02/11/17 07:29 Intake & Output 02/10/17 02/11/17 02/12/17 06:59 06:59 06:59 Weight 84.55 kg General appearance: PRESENT: no acute distress GI/Abdominal exam: PRESENT: normal bowel sounds, soft Psychiatric exam: PRESENT: normal mood Result Laboratory Results: 02/09/17 23:45 Impressions: Obstetrics Ultrasound 02/09/17 00:00 IMPRESSION: 1. Single live intrauterine with heart rate of 140 bpm in breech presentation. 2. Normal amniotic fluid index. Plan Time Spent: Less than 30 Minutes - f/u with [place] or return to hospital for any further bleedin
[2017-02-11] MEDS ORDERED: LEVOTHYROXINE SODIUM 0.088 MG TABLET PO SCH (10:00)
[2017-02-11] MEDS ORDERED: PRENATAL VITAMIN W DHA CAPSULE PO SCH (10:00)
[2017-02-11] MEDS ORDERED: (PENDING PHARMACY ID) (Ranitidine Hcl [Zantac 150 Mg Tablet] 150 MG) PO SCH (10:00)
[2017-02-11] MEDS ORDERED: FAMOTIDINE 20 MG TABLET PO SCH (10:00)
[2017-02-11] MEDS ORDERED: (PENDING PHARMACY ID) (Prenatal No122/Iron/Folic Acid [Prenatal Multi Tablet] 1 EACH) PO SCH (10:00)
== END 2017-02-11 11:40 | disposition home or self-care (01) ==
LOC: LC 22:42 → UNDOADMOB 02-10 00:34 → LR 02-10 00:34 → 2N 02-10 12:40 → LR 02-10 12:40
PROVIDERS: ADMIT Obstetrics & Gynecology Gynecology; ATTEND Obstetrics & Gynecology Gynecology
PROC: 4A1HXCZ Monitoring of Products of Conception, Cardiac Rate, External Approach (ICD-10-PCS; principal; 2017-02-10)
DX: O44.12 Complete placenta previa with hemorrhage, second trimester (principal); O32.1XX0 Maternal care for breech presentation, not applicable or unspecified; Z3A.22 22 weeks gestation of pregnancy
CPT/HCPCS: 86900; 86901; 36415; 86850; 85025; 81001; 80307; 76815; 59899; G0378 ×2; J0702 ×2; J7120; J3490

== ENCOUNTER 2017-02-11 22:51 | Observation (INO) | payer OTHER ==
[2017-02-11] MEDS ORDERED: RINGERS SOLUTION,LACTATED 1,000 ML IV PRN (23:32)
[2017-02-12] LABS: ABSOLUTE LYMPHOCYTES (AUTO) 1.1 10^3/uL (0.5-4.7); ABSOLUTE MONOCYTES (AUTO) 0.5 10^3/uL (0.1-1.4); ABSOLUTE NEUT (AUTO) 10.2 10^3/uL (1.7-8.2); BASOPHILS % (AUTO) 0.3 % (0-2); HEMATOCRIT 34.8 % (36.0-47.0); HEMOGLOBIN 11.5 g/dL (12.0-15.5); LYMPHOCYTES % (AUTO) 9.5 % (13-45); MEAN CORPUSCULAR HEMOGLOBIN 30.1 pg (27.0-33.4); MEAN CORPUSCULAR HGB CONC 33.1 g/dL (32.0-36.0); MEAN CORPUSCULAR VOLUME 91 fl (80-97); MONOCYTES % (AUTO) 4.2 % (3-13); PLATELET COUNT 223 10^3/uL (150-450); RED BLOOD COUNT 3.83 10^6/uL (3.72-5.28); RED CELL DISTRIBUTION WIDTH 14.6 % (11.5-14.0); TOTAL CELLS COUNTED % (AUTO) 100 %; WHITE BLOOD COUNT 11.8 10^3/uL (4.0-10.5)
[2017-02-12 02:58] LABS: APPEARANCE,URINE SLIGHTLY-CLOUDY; BILIRUBIN,URINE NEGATIVE (NEGATIVE); COLOR,URINE YELLOW; GLUCOSE, URINE 50 mg/dL (NEGATIVE); KETONES,URINE NEGATIVE (NEGATIVE); LEUKOCYTE ESTERASE,URINE NEGATIVE (NEGATIVE); NITRITE,URINE NEGATIVE (NEGATIVE); PROTEIN,URINE 30 mg/dL (NEGATIVE); URINE SPECIFIC GRAVITY 1.015; UROBILINOGEN,URINE NEGATIVE mg/dL (<2.0)
[2017-02-12 03:20] LABS: URINE AMPHETAMINES SCREEN NEGATIVE; URINE BARBITURATES SCREEN NEGATIVE; URINE BENZODIAZEPINES SCREEN NEGATIVE; URINE COCAINE SCREEN NEGATIVE; URINE MARIJUANA (THC) SCREEN NEGATIVE; URINE METHADONE SCREEN NEGATIVE
[2017-02-12 04:30] LABS: URINE PHENCYCLIDINE SCREEN NEGATIVE
--- NOTE | 2017-02-12 14:33 | PDOC DISCHARGE SUMMARY ---
General - Admit/Disc Date/PCP Admission Date/Primary Care Provider: 02/11/17 23:32 NAEEM KUNZ MD Discharge Date: 02/12/17 - Discharge Diagnosis (1) Placenta previa with hemorrhage in second trimester Is this a current diagnosis for this admission?: Yes - Additional Information Home Medications: No122/Iron/Folic Acid [ Multi Tablet] 1 each PO DAILY 04/30/16 Levothyroxine Sodium [Synthroid 0.088 mg Tablet] 0.088 mg PO DAILY 02/10/17 Ranitidine HCl [Zantac 150 mg Tablet] 150 mg PO DAILY 02/10/17 History of Present Illness History of Present Illness: NAI MURILLO is a 31 year old female Hospital Course Hospital Course: patient was discharged on Saturday. Returned <24 hours later with cont'd bleeding. no contractions. bleeding has slowly subsided over the course of the day. Now having minimal brownish spotting only. Physical Exam - Physical Exam Vital Signs: Intake & Output 02/11/17 02/12/17 02/13/17 06:59 06:59 06:59 Weight 84.3 kg General appearance: PRESENT: no acute distress, cooperative Result Laboratory Results: 02/11/17 23:48 02/11/17 02/11/17 02/12/17 23:48 23:48 02:39 WBC 11.8 H RBC 3.83 Hgb 11.5 L Hct 34.8 L MCV 91 MCH 30.1 MCHC 33.1 RDW 14.6 H Plt Count 223 Seg Neutrophils % 86.0 H Lymphocytes % 9.5 L Monocytes % 4.2 Eosinophils % 0.0 Basophils % 0.3 Absolute Neutrophils 10.2 H Absolute Lymphocytes 1.1 Absolute Monocytes 0.5 Absolute Eosinophils 0.0 Absolute Basophils 0.0 Urine Color YELLOW Urine Appearance SLIGHTLY-CLOUDY Urine pH 7.0 Ur Specific [place] 1.015 Urine Protein 30 H Urine Glucose (UA) 50 H Urine Ketones NEGATIVE Urine Blood LARGE H Urine Nitrite NEGATIVE Ur Leukocyte Esterase NEGATIVE Urine WBC (Auto) 1 Urine RBC (Auto) >182 Blood Type O POSITIVE Antibody Screen NEGATIVE Plan Time Spent: Greater than 30 Minutes - strict previa precautions given. has a follow up appt scheduled for this week with her OB. emphasized that she is to return if there is any increase in bleeding. modified bedrest reviewed. She is arranging for family help with her current children to facilitate this.
--- NOTE | 2017-03-08 10:42 | Admission Physical ---
Datetime Report Generated by CPN: 03/08/2017 10:42 CURRENT ADMISSION Chief Complaint: Vaginal Bleeding Chief Complaint Other: placenta previa with vaginal bleeding Indication for Induction: Not Applicable Indication for Induction: Observation/Evaluation Admit Plan: Admit to Unit ALLERGIES Medication Allergies: No Medication Allergies: No Known Allergies (02/11/2017) Medication Allergies: No Known Allergies (02/10/2017) Latex: No Latex Allergies OBSTETRICAL HISTORY : 3 Para: 2 Term: 2 : 0 SAB: 0 IAB: 0 Ectopic: 0 Livin Cesareans: 0 VBACs: 0 Multiple Births: 0 Gestational Diabetes: No Rh Sensitization: No Incompetent Cervix: No DENI: No Infertility: No ART Treatment: No Uterine Anomaly: No IUGR: No Hx Previous C/S: No Macrosomia: No Hx Loss/Stillborn: No PIH: No Hx : No Placenta Previa/Abruption: Yes Depression/PP Depression: No PTL/PROM: No Post Hemorrhage: No Current Procedures: Ultrasound Obstetrical History Comments: G1:2013 40 female epidural 8 lbs 6 oz G2:april 2016 [age] female 8 lbs 5 oz G3: current- total previa from u/s at [facility] 12.30.17 SEE RECORDS Alcohol: No Marijuana : No Cocaine: No Other Illicit Drugs: No Cigarettes: Never Smoker. [id number] MEDICAL HISTORY Diabetes: No Blood Transfusion: No Pulmonary Disease (Asthma, TB): Yes Breast Disease: No Hypertension: No [employer] Refrigeration Technician Surgery: No Heart Disease: No Hosp/Surgery: Yes Autoimmune Disorder: No Anesthetic Complications: No Kidney Disease: No Abnormal Pap Smear: Yes Neuro/Epilepsy: No Psychiatric Disorders: No Other Medical Diseases: No Hepatitis/Liver Disease: No Significant Family History: No Varicosities/Phlebitis: No Trauma/Violence : No Thyroid Dysfunction: Yes Medical History Comments: hypothyroidism, tonsillectomy (2010), Abn pap with colpo, asthma, migraines hernia present: ventral hernia, umbilical hernia, hiatial EGD 2016 INFECTIOUS HISTORY Gonorrhea: No Genital Herpes: No Chlamydia: Yes Tuberculosis: No Syphilis: No Hepatitis: No HIV/AIDS Exposure: No Rash or Viral Illness: No HPV: No Infectious History Comments: [id number] per chartpt. denies PHYSICAL EXAM General: Normal HEENT: Normal Neurologic: Normal Thyroid: Normal Heart: Normal Lungs: Normal Breast: Deferred Back: Normal Abdomen: Normal Genitourinary Exam: Deferred Extremities: Normal DTRs: Normal Pelvic Type: Not Done Physical Exam Comments: re-admission for vaginal bleeding FETUS A EGA: 21.6 EGA: 21.5 PLANS FOR LABOR AND DELIVERY Pain Management: Natural Feeding Preference: Breast Benefit of Breast Feed Discussed: Yes Circumcision: Yes INFORMED CONSENT Informed Consent Obtained: Risks, Benefits and Alternatives Discussed Signature: with User ID: [email or web address]
== END 2017-02-12 14:37 | disposition home or self-care (01) ==
LOC: LC 22:51 → LR 23:32
PROVIDERS: ADMIT Obstetrics & Gynecology Gynecology; ATTEND Obstetrics & Gynecology Gynecology
PROC: 4A1HXCZ Monitoring of Products of Conception, Cardiac Rate, External Approach (ICD-10-PCS; principal; 2017-02-12)
DX: O44.12 Complete placenta previa with hemorrhage, second trimester (principal); O99.282 Endocrine, nutritional and metabolic diseases complicating pregnancy, second trimester; E03.9 Hypothyroidism, unspecified; Z79.899 Other long term (current) drug therapy; Z3A.21 21 weeks gestation of pregnancy
CPT/HCPCS: 86900; 86901; 36415; 86850; 85025; 81001; 80307; 59899; G0378; G0379

== ENCOUNTER 2017-04-01 19:12 | Outpatient (CLI) | payer OTHER ==
[2017-04-01 19:41] LABS: APPEARANCE,URINE SLIGHTLY-CLOUDY; BILIRUBIN,URINE NEGATIVE (NEGATIVE); COLOR,URINE YELLOW; GLUCOSE, URINE NEGATIVE (NEGATIVE); KETONES,URINE NEGATIVE (NEGATIVE); LEUKOCYTE ESTERASE,URINE TRACE (NEGATIVE); NITRITE,URINE NEGATIVE (NEGATIVE); PROTEIN,URINE NEGATIVE (NEGATIVE); URINE SPECIFIC GRAVITY 1.005; UROBILINOGEN,URINE NEGATIVE mg/dL (<2.0)
[2017-04-01 19:58] LABS: URINE AMPHETAMINES SCREEN NEGATIVE; URINE BARBITURATES SCREEN NEGATIVE; URINE BENZODIAZEPINES SCREEN NEGATIVE; URINE COCAINE SCREEN NEGATIVE; URINE MARIJUANA (THC) SCREEN NEGATIVE; URINE METHADONE SCREEN NEGATIVE; URINE PHENCYCLIDINE SCREEN NEGATIVE
[2017-04-01 20:16] LABS: AMNISURE (ROM) NEGATIVE (NEGATIVE)
== END 2017-04-01 20:38 | disposition home or self-care (01) ==
LOC: LC 19:12
PROVIDERS: ATTEND Obstetrics & Gynecology Gynecology
PROC: 4A1HXCZ Monitoring of Products of Conception, Cardiac Rate, External Approach (ICD-10-PCS; principal; 2017-04-01)
DX: O47.03 False labor before 37 completed weeks of gestation, third trimester (principal); Z3A.33 33 weeks gestation of pregnancy
CPT/HCPCS: 80307; 81001; 84112

== ENCOUNTER 2017-04-03 20:42 | Inpatient (IN) | payer OTHER ==
[2017-04-03 21:00] LABS: ABSOLUTE BASOPHILS # (AUTO) 0.1 10^3/uL (0.0-0.2); ABSOLUTE EOSINOPHILS # (AUTO) 0.2 10^3/uL (0.0-0.6); ABSOLUTE LYMPHOCYTES (AUTO) 2.6 10^3/uL (0.5-4.7); ABSOLUTE NEUT (AUTO) 5.8 10^3/uL (1.7-8.2); BASOPHILS % (AUTO) 0.6 % (0-2); EOSINOPHILS % (AUTO) 1.7 % (0-6); HEMATOCRIT 31.9 % (36.0-47.0); HEMOGLOBIN 10.6 g/dL (12.0-15.5); LYMPHOCYTES % (AUTO) 26.8 % (13-45); MEAN CORPUSCULAR HEMOGLOBIN 29.9 pg (27.0-33.4); MEAN CORPUSCULAR HGB CONC 33.3 g/dL (32.0-36.0); MEAN CORPUSCULAR VOLUME 90 fl (80-97); MONOCYTES % (AUTO) 9.9 % (3-13); PLATELET COUNT 250 10^3/uL (150-450); RED BLOOD COUNT 3.56 10^6/uL (3.72-5.28); RED CELL DISTRIBUTION WIDTH 14.4 % (11.5-14.0); TOTAL CELLS COUNTED % (AUTO) 100 %; WHITE BLOOD COUNT 9.6 10^3/uL (4.0-10.5)
[2017-04-03] MEDS ORDERED: CEFAZOLIN 2 GM/D5W RTU 2 GM/50 ML RTUPB IV ONE (21:16)
[2017-04-03] MEDS ORDERED: CITRIC ACID/SODIUM CITRATE ORAL SOLN 15 ML UDCUP ONE (21:16)
[2017-04-03] MEDS ORDERED: OXYTOCIN 10 UNIT/ML VIAL ONE (21:31)
[2017-04-03] MEDS ORDERED: PROPOFOL INJ 200 MG/20 ML VIAL IV ONE (21:32)
[2017-04-03] MEDS ORDERED: MIDAZOLAM 2 MG/2 ML INJ ONE (21:32)
[2017-04-03] MEDS ORDERED: FENTANYL CITRATE INJ/PF 100 MCG/2 ML AMPUL ONE (21:32)
[2017-04-03] MEDS ORDERED: EPHEDRINE SULFATE INJ 50 MG/1 ML AMPULE ONE (21:32)
[2017-04-03] MEDS ORDERED: BETAMET ACET/BETAMET NA INJ 6 MG/1 ML ONE (21:35)
[2017-04-03] MEDS ORDERED: BETAMET ACET/BETAMET NA INJ 6 MG/1 ML IM ONE (21:39)
[2017-04-03] MEDS ORDERED: MAGNESIUM SULFATE 4 GM/100 ML RTUPB IV ONE ×2 (21:44→22:10)
[2017-04-03] MEDS ORDERED: MAGNESIUM SULFATE 20 GM/500 ML RTUINJ IV PRN (22:10)
[2017-04-03 22:22] LABS: APPEARANCE,URINE CLEAR; BILIRUBIN,URINE NEGATIVE (NEGATIVE); COLOR,URINE YELLOW; GLUCOSE, URINE NEGATIVE (NEGATIVE); KETONES,URINE TRACE mg/dL (NEGATIVE); LEUKOCYTE ESTERASE,URINE NEGATIVE (NEGATIVE); NITRITE,URINE NEGATIVE (NEGATIVE); PROTEIN,URINE NEGATIVE (NEGATIVE); URINE SPECIFIC GRAVITY 1.015; UROBILINOGEN,URINE NEGATIVE mg/dL (<2.0)
[2017-04-03 22:42] LABS: URINE AMPHETAMINES SCREEN NEGATIVE; URINE BARBITURATES SCREEN NEGATIVE; URINE BENZODIAZEPINES SCREEN NEGATIVE; URINE COCAINE SCREEN NEGATIVE; URINE MARIJUANA (THC) SCREEN NEGATIVE; URINE METHADONE SCREEN NEGATIVE; URINE PHENCYCLIDINE SCREEN NEGATIVE
[2017-04-03] MEDS ORDERED: RINGERS SOLUTION,LACTATED 1,000 ML IV PRN (23:10)
--- NOTE | 2017-04-03 23:19 | RADIOLOGY REPORT (SQ) ---
EXAM DESCRIPTION: U/S OB LIMITED COMPLETED DATE/TIME: 04/03/2017 10:41 pm REASON FOR STUDY: placenta,placement condition pt bleeding COMPARISON: None. TECHNIQUE: Limited transabdominal grayscale ultrasound for evaluation of specific requested obstetri gómez parameters. LIMITATIONS: None. FINDINGS: Anterior placenta appears to cross the internal cervical os consistent with complete previ a. RADHAMES: Normal. FHR: 143 beats per minute. PRESENTATION: Cephalic. OTHER: No other significant findings. IMPRESSION: Anterior placenta appears to cross the internal cervical os consistent with complete pre via. Trimester of : Third trimester - 28 weeks to delivery. COMMENT: Ordering Provider at bedside for exam. TECHNICAL DOCUMENTATION: JOB ID: [id number] [id number] 2010 [employer]- All Rights Reserved
[2017-04-03] MEDS ORDERED: RINGERS SOLUTION,LACTATED 1,000 ML IV ONE (23:30)
[2017-04-04 01:21] VITALS: BP 100/59
[2017-04-04 03:47] LABS: ABSOLUTE MONOCYTES (AUTO) 0.2 10^3/uL (0.1-1.4); ABSOLUTE NEUT (AUTO) 8.7 10^3/uL (1.7-8.2); BASOPHILS % (AUTO) 0.2 % (0-2); EOSINOPHILS % (AUTO) 0.1 % (0-6); HEMATOCRIT 29.6 % (36.0-47.0); LYMPHOCYTES % (AUTO) 9.6 % (13-45); MEAN CORPUSCULAR HEMOGLOBIN 29.9 pg (27.0-33.4); MEAN CORPUSCULAR HGB CONC 33.6 g/dL (32.0-36.0); MEAN CORPUSCULAR VOLUME 89 fl (80-97); MONOCYTES % (AUTO) 2.1 % (3-13); PLATELET COUNT 204 10^3/uL (150-450); RED BLOOD COUNT 3.33 10^6/uL (3.72-5.28); RED CELL DISTRIBUTION WIDTH 14.2 % (11.5-14.0); TOTAL CELLS COUNTED % (AUTO) 100 %; WHITE BLOOD COUNT 9.9 10^3/uL (4.0-10.5)
--- NOTE | 2017-04-04 04:52 | L&D Progress Notes ---
PROGRESS NOTES Datetime Report Generated by CPN: 04/04/2017 04:52 PROGRESS NOTE Impression Other: Only minimal bleeding Plan: Continue Present Management Comment: Minimal bleeding. No pains noted. Continue present managment. If she remains stable consider transfer. MEMBRANES Pooling: Negative Membranes: Intact Membranes: Intact FETUS A FHR - Baseline: 120 Monitoring: External US Variability: Moderate 6-25bpm Decelerations: None FHR Category: Category I : 29.0 : 29.0 SIGNATURE SIGNATURE: [id number] Signature: with User ID: [email or web address]
[2017-04-04 08:03] LABS: ABSOLUTE MONOCYTES (AUTO) 0.2 10^3/uL (0.1-1.4); ABSOLUTE NEUT (AUTO) 8.5 10^3/uL (1.7-8.2); BASOPHILS % (AUTO) 0.5 % (0-2); HEMATOCRIT 32.8 % (36.0-47.0); LYMPHOCYTES % (AUTO) 10.4 % (13-45); MEAN CORPUSCULAR HEMOGLOBIN 29.7 pg (27.0-33.4); MEAN CORPUSCULAR HGB CONC 33.5 g/dL (32.0-36.0); MEAN CORPUSCULAR VOLUME 89 fl (80-97); PLATELET COUNT 233 10^3/uL (150-450); RED CELL DISTRIBUTION WIDTH 14.6 % (11.5-14.0); SEGMENTED NEUTROPHILS % (AUTO) 87.1 % (42-78); TOTAL CELLS COUNTED % (AUTO) 100 %; WHITE BLOOD COUNT 9.8 10^3/uL (4.0-10.5)
[2017-04-04 09:13] LABS: ALANINE AMINOTRANSFERASE 24 U/L (9-52); ALBUMIN 3.2 g/dL (3.5-5.0); ALKALINE PHOSPHATASE 88 U/L (38-126); ANION GAP 10 (5-19); ASPARTATE AMINO TRANSFERASE 17 U/L (14-36); BILIRUBIN,DIRECT 0.3 mg/dL (0.0-0.4); BILIRUBIN,TOTAL 0.8 mg/dL (0.2-1.3); BLOOD UREA NITROGEN 4 mg/dL (7-20); CALCIUM 7.9 mg/dL (8.4-10.2); CARBON DIOXIDE 21 mmol/L (22-30); CHLORIDE 106 mmol/L (98-107); GLUCOSE 118 mg/dL (75-110); POTASSIUM 4.2 mmol/L (3.6-5.0); SODIUM 136.6 mmol/L (137-145); TOTAL PROTEIN 6.1 g/dL (6.3-8.2)
--- NOTE | 2017-04-04 09:21 | PDOC TRANSFER SUMMARY ---
General Admission Date/PCP: 04/03/17 20:55 NAEEM KUNZ MD Admission Date: 04/03/17 Transfer Date: 04/04/17 Accepting Facility: [facility] Accepting Physician: Dr. Covarrubias Resuscitation Status: Full Code - Transfer Diagnosis (1) Placenta previa with hemorrhage in third trimester Is this a current diagnosis for this admission?: Yes Diagnosis Summary: Pt admitted last evening for 2nd episode of bleeding. 1st episode occurred at approx 24wks. Patient is steroid complete from prior admission. She was admitted and transfused due to decrease in Hct with increased bleeding. Now with scant bleeding. Hct after transfusion is 32. She was initiated on mag for neuroprotection. She was also given rescue dose of steroids. She is only having rare ctx - not feeling them. Cervix is closed via US. NOT digitally evaluated. Due to second episode of bleeding and less than 32 wks recommended to transfer patient due to concern for possible need to deliver if bleeding occurs again. - Transfer Medications Home Medications: No122/Iron/Folic Acid [ Multi Tablet] 1 each PO DAILY 04/30/16 Levothyroxine Sodium [Synthroid 0.088 mg Tablet] 0.088 mg PO DAILY 02/10/17 Ranitidine HCl [Zantac 150 mg Tablet] 150 mg PO PRN PRN 02/10/17 Transfer Medications: Current Medications Lactated Ringer's (Lactated Ringers 1000 Ml Iv Soln) 1,000 mls @ 100 mls/hr IV CONTINUOUS PRN PRN Reason: THIS MED IS NOT "PRN" Stop: 05/03/17 23:09 Last Admin: 04/04/17 00:04 Dose: 1,000 ml Magnesium Sulfate (Magnesium Sulfate Rtu 20 Gm/500 Ml Premix) 20 gm in 500 mls @ 25 mls/hr IV CONTINUOUS PRN PRN Reason: THIS MED IS NOT "PRN" Stop: 05/03/17 22:09 Last Admin: 04/04/17 00:04 Dose: 500 ml - Allergies Allergies/Adverse Reactions: No Known Allergies Allergy (Verified 04/01/17 19:25) Hospital Course Hospital Course: 32yo (h/o FTSVD x 2) with known complete previa admitted last evening for 2nd episode of bleeding. 1st episode occurred at approx 24wks. Patient is steroid complete from prior admission. She was admitted and transfused due to decrease in Hct with increased bleeding. Now with scant bleeding. Hct after transfusion is 32. She was initiated on mag for neuroprotection. She was also given rescue dose of steroids. Physical Exam Vital Signs: Temp Pulse Resp BP Pulse Ox 98.1 F 97 18 100/59 L 100 04/04/17 01:10 04/04/17 01:10 04/04/17 01:10 04/04/17 01:10 04/04/17 01:10 Intake & Output 04/03/17 04/04/17 04/05/17 06:59 06:59 06:59 Intake Total 375 Balance 375 Weight 89.358 kg General appearance: PRESENT: no acute distress, well-developed, well-nourished Head exam: PRESENT: atraumatic, normocephalic Respiratory exam: PRESENT: clear to auscultation thom. ABSENT: rales, rhonchi, wheezes Cardiovascular exam: PRESENT: RRR. ABSENT: diastolic murmur, rubs, systolic murmur GI/Abdominal exam: PRESENT: normal bowel sounds, soft. ABSENT: distended, guarding, mass, organolmegaly, rebound, tenderness Rectal exam: PRESENT: deferred Extremities exam: PRESENT: full ROM. ABSENT: calf tenderness, clubbing, pedal edema Neurological exam: PRESENT: alert, awake, oriented to person, oriented to place , oriented to time, oriented to situation, CN II-XII grossly intact. ABSENT: motor sensory deficit Psychiatric exam: PRESENT: appropriate affect, normal mood. ABSENT: homicidal ideation, suicidal ideation Skin exam: PRESENT: dry, intact, warm. ABSENT: cyanosis, rash Results Laboratory Results: 04/04/17 07:47 04/03/17 04/03/17 04/03/17 20:45 20:45 22:04 WBC 9.6 RBC 3.56 L Hgb 10.6 L Hct 31.9 L MCV 90 MCH 29.9 MCHC 33.3 RDW 14.4 H Plt Count 250 Seg Neutrophils % 61.0 Lymphocytes % 26.8 Monocytes % 9.9 Eosinophils % 1.7 Basophils % 0.6 Absolute Neutrophils 5.8 Absolute Lymphocytes 2.6 Absolute Monocytes 1.0 Absolute Eosinophils 0.2 Absolute Basophils 0.1 Urine Color YELLOW Urine Appearance CLEAR Urine pH 7.0 Ur Specific [place] 1.015 Urine Protein NEGATIVE Urine Glucose (UA) NEGATIVE Urine Ketones TRACE H Urine Blood NEGATIVE Urine Nitrite NEGATIVE Ur Leukocyte Esterase NEGATIVE Urine WBC (Auto) 0 Urine RBC (Auto) 0 Blood Type O POSITIVE Antibody Screen NEGATIVE 04/04/17 04/04/17 03:36 07:47 WBC 9.9 9.8 RBC 3.33 L 3.70 L Hgb 10.0 L 11.0 L Hct 29.6 L 32.8 L MCV 89 89 MCH 29.9 29.7 MCHC 33.6 33.5 RDW 14.2 H 14.6 H Plt Count 204 233 Seg Neutrophils % 88.0 H 87.1 H Lymphocytes % 9.6 L 10.4 L Monocytes % 2.1 L 2.0 L Eosinophils % 0.1 0.0 Basophils % 0.2 0.5 Absolute Neutrophils 8.7 H 8.5 H Absolute Lymphocytes 1.0 1.0 Absolute Monocytes 0.2 0.2 Absolute Eosinophils 0.0 0.0 Absolute Basophils 0.0 0.0 Urine Color Urine Appearance Urine pH Ur Specific [place] Urine Protein Urine Glucose (UA) Urine Ketones Urine Blood Urine Nitrite Ur Leukocyte Esterase Urine WBC (Auto) Urine RBC (Auto) Blood Type Antibody Screen Impressions: Obstetrics Ultrasound 04/03/17 00:00 IMPRESSION: Anterior placenta appears to cross the internal cervical os consistent with complete previa. Trimester of : Third trimester - 28 weeks to delivery. Status: Image reviewed by me Plan Discharge Plan: Appreciate Dr. Covarrubias's and [facility] litigation legal assistant with patient. Thank you very much Time Spent: Less than 30 Minutes
== END 2017-04-04 11:15 | disposition short-term general hospital (02) | DRG 782 ==
LOC: LC 20:42 → LR 20:55
PROVIDERS: ADMIT Obstetrics & Gynecology; ATTEND Obstetrics & Gynecology
PROC: 4A1HXCZ Monitoring of Products of Conception, Cardiac Rate, External Approach (ICD-10-PCS; principal; 2017-04-03)
PROC: 30233N1 Transfusion of Nonautologous Red Blood Cells into Peripheral Vein, Percutaneous Approach (ICD-10-PCS; 2017-04-03)
DX: O44.13 Complete placenta previa with hemorrhage, third trimester (principal); Z3A.29 29 weeks gestation of pregnancy
CPT/HCPCS: 36415; 36430; 76815; 80053; 80307; 81001; 83735; 85025; 86592; 86850; 86900; 86901; 86920; 94760; J0690; J0702; J2250; J2590; J2704; J3010; J3475; J3490; P9016